=== PATIENT | female | born 1995 | race Caucasian/White ===

== ENCOUNTER 2022-12-31 12:29 | Inpatient (IN) ==
[2022-12-31 13:08] LABS: Urine Appearance Cloudy; Urine Bilirubin Negative (Negative); Urine Blood 1+ (Negative); Urine Color Yellow; Urine Glucose Negative (Negative); Urine Ketones Negative (Negative); Urine Nitrite Negative (Negative); Urine Protein Negative (Negative); Urine Specific Gravity 1.005 (1.002-1.030); Urine Urobilinogen Negative (Negative)
[2022-12-31 13:31] LABS: Urine Bacteria Absent (Absent); Urine Red Blood Cell Trace(0-2/hpf) (Absent); Urine Squamous Epithelial Cell Present (Absent); Urine White Blood Cell Absent (Absent)
[2022-12-31] MEDS ORDERED: Al Hydrox/Mg Hydrox/Simet LIQ 30 ML UDC PO PRN (14:25)
[2023-01-01] MEDS: Vitamin THERAPEUTIC TAB PO SCH (08:39)
[2023-01-02 08:13] LABS: HDL Cholesterol 37.3 mg/dL
[2023-01-02] MEDS: Vitamin THERAPEUTIC TAB PO SCH (09:09)
[2023-01-03] MEDS: Vitamin THERAPEUTIC TAB PO SCH (09:09)
[2023-01-03 10:39] VITALS: BP 129/80
== END 2023-01-03 12:35 | disposition home or self-care (01) | DRG 755 ==
LOC: ED 12:29 → EDHOLD 14:25 → BSU 14:36
PROVIDERS: ADMIT Psychiatry & Neurology Psychiatry; ATTEND Psychiatry & Neurology Psychiatry